=== PATIENT | female | born 1970 | race Two or more races ===

== ENCOUNTER 2024-07-07 12:03 | Emergency (ER) | payer OTHER ==
[~2024-07-07] VITALS: Ht 167.6 cm; Wt 76.2 kg
[2024-07-07] MEDS ORDERED: CARDURA1 MG PO (12:43)
[2024-07-07] MEDS ORDERED: NORVASC2.5 M1 PO (12:43)
[2024-07-07] MEDS ORDERED: TELMISARTAN80 MG PO (12:43)
[2024-07-07] MEDS ORDERED: SINGULAIR4 MG PO (12:44)
[2024-07-07] MEDS ORDERED: TEZSPIRE210 MG/1.1 SQ (12:45)
[2024-07-07] MEDS ORDERED: DOXAZOSIN MESYLA2 MG PO (12:45)
[2024-07-07] MEDS ORDERED: BREZTRI AEROS10.7 GM (12:46)
[2024-07-07] MEDS ORDERED: BACITRACIN-NEOMYCIN-POLYMYXIN 0.9 GM PACKET TOP ONE (12:55)
[2024-07-07] MEDS ORDERED: TETANUS & DIPHTHERIA TOX,ADULT 0.5 ML VIAL IM STA (14:22)
[2024-07-07] MEDS ORDERED: DIPHTH,PERTUSS(ACELL),TET VAC 0.5 ML SYRINGE IM ONE (14:51)
== END 2024-07-07 15:23 | disposition home or self-care (01) ==
LOC: ER 12:33
DX: S81.811A Laceration without foreign body, right lower leg, initial encounter (principal); X58.XXXA Exposure to other specified factors, initial encounter; Y93.89 Activity, other specified; Y92.89 Other specified places as the place of occurrence of the external cause; Y99.9 Unspecified external cause status; I10 Essential (primary) hypertension; Z88.6 Allergy status to analgesic agent; Z88.8 Allergy status to other drugs, medicaments and biological substances; Z87.09 Personal history of other diseases of the respiratory system

== ENCOUNTER → 2025-01-12 | Emergency (ER) | payer OTHER ==
[~2025-01-12] VITALS: Ht 167.6 cm; Wt 79.4 kg
[~2025-01-12] MED LIST: BREZTRI AEROS10.7 GM; CARDURA1 MG PO; DOXAZOSIN MESYLA2 MG PO; FAMOTIDINE/PF 20 MG/2 ML VIAL IV ONE; FAMOTIDINE/PF 20 MG/2 ML VIAL ONE; METHYLPREDNISOLONE SOD SUCC 125 MG VIAL IV ONE; METHYLPREDNISOLONE SOD SUCC 125 MG VIAL ONE; NORVASC2.5 M1 PO; SINGULAIR4 MG PO; TELMISARTAN80 MG PO; TEZSPIRE210 MG/1.1 SQ; TEZSPIRE210 MG/1.9 SQ; XOPENEX CO1.25 MG/0. IH; XOPENEX HFA15 GM IH
[2025-01-12 14:20] VITALS: BP 130/72; O2SAT 98
[2025-01-12 16:04] LABS: BASO % 0.5 % (0.1-1.2); EOS # 0.00 (0.04-0.54); EOS % 0.0 % (0.7-7.0); LYMPH # 0.60 (1.18-3.74); LYMPH % 8.0 % (19.3-53.1); MEAN PLATELET VOLUME 8.60 fl (9.4-12.4); MONO # 0.32 (0.24-0.82); MONO % 4.3 % (4.7-12.5); NEUT # 6.49 (1.56-6.13); NEUT % 86.9 % (34.0-71.1); RED CELL DISTRIBUTION WIDTH 12.1 % (11.6-14.4)
== END | disposition home or self-care (01) ==
LOC: ER 13:55
PROVIDERS: General Practice
DX: T78.40XA Allergy, unspecified, initial encounter (principal); R21 Rash and other nonspecific skin eruption; R06.02 Shortness of breath; I10 Essential (primary) hypertension; Z88.1 Allergy status to other antibiotic agents; Z88.6 Allergy status to analgesic agent; Z88.8 Allergy status to other drugs, medicaments and biological substances